=== PATIENT | female | born 1995 | race Caucasian/White ===

== ENCOUNTER → 2018-05-26 08:00 | Outpatient (CLI) | payer SELFPAY | DX: Z23 Encounter for immunization (principal) | CPT/HCPCS: 90471; 90686 ==

== ENCOUNTER → 2019-06-17 13:00 | Outpatient (CLI) | payer OTHER, SELFPAY | DX: Z23 Encounter for immunization (principal) | CPT/HCPCS: 90471; 90686 ==

== ENCOUNTER → 2019-12-10 09:08 | Outpatient (CLI) | payer OTHER, SELFPAY ==
[2019-12-12 05:38] LABS: COVID19 Sendout Not Detected (Not Detected)
== END ==
PROVIDERS: Visit Provider Family Medicine
DX: Z20.828 Contact with and (suspected) exposure to other viral communicable diseases (principal)
CPT/HCPCS: 87635